=== PATIENT | male | born 1960 | race Caucasian/White ===

== ENCOUNTER 2019-06-05 17:37 | Emergency (ER) | payer SELFPAY ==
--- NOTE | 2019-06-05 17:42 | DI.RAD.S_ITS ---
PROCEDURE: XR CHEST 1V INDICATIONS: chest pain TECHNIQUE: One view of the chest was acquired. COMPARISON: [facility], , CHEST 1 VIEW, 08/15/2015, 15:14. FINDINGS: Surgical changes and devices: Remote CABG Lungs and pleura: Lungs are clear. No pleural effusions or pneumothorax. Mediastinum: Mediastinal contours appear normal. Heart size is normal. Bones and chest wall: No suspicious bony lesions. Overlying soft tissues appear unremarkable. IMPRESSION: No evidence acute pulmonary process. Dictated by: Kapil Malone M.D. on 06/05/2019 at 18:30 Approved by: Kapil Malone M.D. on 06/05/2019 at 18:31
[2019-06-05 17:50] VITALS: BP 126/84; PULSE 72; RESP 13; TEMP 36.4; O2SAT 100; BMI 28.5
[2019-06-05 18:00] VITALS: BP 129/77; PULSE 72; RESP 21; O2SAT 97
[2019-06-05 18:13] LABS: INR 0.9 (0.9-1.3); Prothrombin Time 10.5 SECONDS (10.1-12.7)
[2019-06-05 18:16] LABS: PTT Partial Thromboplastin Tim 31 SECONDS (26.4-36.2)
[2019-06-05 18:19] LABS: Alanine Aminotransferase 49 IU/L (<50); Albumin 4.6 g/dL (3.5-5.0); Albumin Globulin Ratio 1.8 (1.0-2.8); Alkaline Phosphatase 55 U/L (38-126); Aspartate Aminotransferase 41 IU/L (17-59); Bilirubin Total 0.9 mg/dL (0.2-1.3); Blood Urea Nitrogen 25 mg/dL (9-20); Calcium 9.1 mg/dL (8.4-10.2); Carbon Dioxide 28 mmol/L (22-32); Chloride 102 mmol/L (98-107); Creatine Kinase 234 U/L (55-170); Estimated Glomerular Filt Rate > 60.0 mL/min (>60); Globulin 2.6 g/dL (1.7-4.1); Glucose 88 mg/dL (70-100); HEMOLYSIS < 15 (0-50); Lipase 274 U/L (23-300); Potassium 4.1 mmol/L (3.4-5.1); Sodium 139 mmol/L (137-145); Total Protein 7.2 g/dL (6.3-8.2)
[2019-06-05 18:24] LABS: Add Manual Diff / Slide Review NO; Basophils Absolute Auto 100 /uL (0-100); Basophils Percent Auto 1.1 % (0-2); Eosinophils Absolute Auto 100 /uL (0-450); Eosinophils Percent Auto 1.5 % (2-4); Hemoglobin 15.5 g/dL (13.5-17.5); Lymphocytes Absolute Auto 1800 /uL (1100-4500); Lymphocytes Percent Auto 30.4 % (25-40); Mean Corpuscular Hemoglobin 34.1 PG (26-34); Mean Corpuscular Volume 94.9 fL (80-100); Monocytes Absolute Auto 400 /uL (0-900); Neutrophils Absolute Auto 3500 /uL (1500-7000); Platelet Count 170 X10^3/uL (150-400); Red Blood Cell Count 4.53 X10^6/uL (4.5-5.9); White Blood Cell Count 5.8 X10^3/uL (4.5-11.0)
[2019-06-05 18:30] LABS: Troponin I < 0.012 ng/mL (0.01-0.034)
--- NOTE | 2019-06-05 18:32 | ED.CHESTPAIN ---
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 His discomfort radiated up in to his shoulders. He denies any dizziness, weakness, shortness of breath, diaphoresis, nausea or vomiting. He denies any pain since his arrival. He's had no recent travel. He denies any cardiac evaluation since his CABG in 2016. He feels completely normal now. Related Data Allergies Allergy/AdvReac Type Severity Reaction Status Date / Time penicillin G [PENICILLIN G] Allergy Severe HIVES Unverified 11/04/17 12:35 Review of Systems Constitutional Constitutional: Denies chills, Denies fatigue, Denies fever(s), Denies frequent falls, Denies lethargy and Denies weakness Eyes Eyes: Denies change in vision, Denies eye discharge, Denies irritation and Denies loss of vision ENT Ears, Nose, Mouth, and Throat: Denies change in voice, Denies dizziness, Denies neck pain, Denies sore throat and Denies throat swelling Cardiovascular Cardiovascular: Reports chest pain, Denies irregular heart rhythm, Denies lightheadedness, Denies palpitations, Denies dyspnea, Denies dyspnea on exertion and Denies orthopnea Respiratory Respiratory: Denies cough, Denies dyspnea, Denies dyspnea on exertion and Denies wheezing Gastrointestinal Gastrointestinal: Denies abdominal pain, Denies change in bowel habits, Denies diarrhea, Denies nausea and Denies vomiting Genitourinary Genitourinary: Denies hematuria, Denies flank pain, Denies urinary incontinence and Denies urinary urgency Musculoskeletal Musculoskeletal: Denies back pain, Denies muscle weakness, Denies neck pain, Denies numbness and Denies tingling Integumentary/Breasts Skin/Breast: Denies pruritus, Denies erythema, Denies rash and Denies wounds Neurologic Neurologic: Denies behavioral changes, Denies confusion, Denies dizziness, Denies frequent falls, Denies loss of vision, Denies numbness, Denies tingling and Denies weakness Psychiatric Psychiatric: Denies anxiety, Denies behavioral changes, Denies confusion, Denies depression, Denies homicidal ideation and Denies suicidal ideation Endocrine Endocrine: Denies fatigue, Denies flushing and Denies palpitations Hematologic/Lymphatic Hematologic/Lymphatic: Denies easy bruising Allergic/Immunologic Allergic/Immunologic: Denies urticaria, Denies throat swelling and Denies wheezing Patient History Social History Smoking Status: Never smoker alcohol intake frequency: a few times a week Substance Use Type: does not use Exam Narrative Exam Narrative: GENERAL: [58] year old patient appears stated age. Well-nourished, well-developed patient, in mild distress. HEAD: Atraumatic. Normocephalic. EYES: Pupils equal round and reactive. Extraocular motions intact. No scleral icterus. No injection or drainage. ENT: Nose without bleeding, purulent drainage. Throat without erythema, tonsillar hypertrophy or exudate. Airway patent. NECK: Trachea midline. Non tender CARDIOVASCULAR: Regular rate and rhythm without murmurs, gallops, or rubs. RESPIRATORY: Clear to auscultation. Breath sounds equal bilaterally. No wheezes, rales, or rhonchi. GASTROINTESTINAL: Abdomen soft, non-tender, nondistended. EXTREMITIES: No edema or joint tenderness. BACK: Nontender without deformity or crepitance. No flank tenderness. NEURO: AOx3. SKIN: No rash or erythema of visible areas Initial Vital Signs Initial Vital Signs: Vital Signs Temperature 97.5 F L 06/05/19 17:50 Pulse Rate 72 06/05/19 17:50 Respiratory Rate 13 06/05/19 17:50 Blood Pressure 126/84 06/05/19 17:50 Pulse Oximetry 100 06/05/19 17:50 Course Orders Ordered: ED Orders 06/05/19 20:40 Troponin I Stat Consultations Consultation #1: Called to cardiology at [facility] to discuss the case. They share the opinion that patient is safe to discharge home after 2nd troponin given the patient's story and lack of ongoing symptoms. This is consistent with stable angina Vital Signs Vital signs: Vital Signs - 8 hr 06/05/19 21:37 Pulse Rate 74 Respiratory Rate 21 Blood Pressure 130/86 Pulse Oximetry 97 MDM - Chest Pain Lab Data Result diagrams: 06/05/19 18:00 06/05/19 18:00 Labs: Lab Results 06/05/19 06/05/19 06/05/19 Range/Units 18:00 18:00 18:00 WBC 5.8 (4.5-11.0) X10^3/uL RBC 4.53 (4.5-5.9) X10^6/uL Hgb 15.5 (13.5-17.5) g/dL Hct 43.0 (41-53) % MCV 94.9 (80-100) fL MCH 34.1 H (26-34) PG MCHC 36.0 (30-36) % RDW 13.0 (11.6-14.8) % Plt Count 170 (150-400) X10^3/uL Neut % (Auto) 60.0 (50-75) % Lymph % (Auto) 30.4 (25-40) % [place] % (Auto) 7.0 (3-14) % Eos % (Auto) 1.5 L (2-4) % Baso % (Auto) 1.1 (0-2) % Neut # (Auto) 3500 (0239-0846) /uL Lymph # (Auto) 1800 (7320-3076) /uL [place] # (Auto) 400 (0-900) /uL Eos # (Auto) 100 (0-450) /uL Baso # (Auto) 100 (0-100) /uL PT 10.5 (10.1-12.7) SECONDS INR 0.9 (0.9-1.3) APTT 31 (26.4-36.2) SECONDS Sodium 139 (137-145) mmol/L Potassium 4.1 (3.4-5.1) mmol/L Chloride 102 (98-107) mmol/L Carbon Dioxide 28 (22-32) mmol/L BUN 25 H (9-20) mg/dL Creatinine 1.00 (0.66-1.25) mg/dL Estimated GFR > 60.0 (>60) mL/min BUN/Creatinine Ratio 25.0 H (6-22) Glucose 88 (70-100) mg/dL Calcium 9.1 (8.4-10.2) mg/dL Total Bilirubin 0.9 (0.2-1.3) mg/dL AST 41 (17-59) IU/L ALT 49 (<50) IU/L Alkaline Phosphatase 55 (38-126) U/L Total Creatine Kinase 234 H (55-170) U/L CK-MB (CK-2) 3.63 H (<2.37) ng/mL CK-MB (CK-2) Rel Index 1.6 (1.5-5.0) % Troponin I < 0.012 (0.01-0.034) ng/mL Total Protein 7.2 (6.3-8.2) g/dL Albumin 4.6 (3.5-5.0) g/dL Globulin 2.6 (1.7-4.1) g/dL Albumin/Globulin Ratio 1.8 (1.0-2.8) Lipase 274 (23-300) U/L 06/05/19 Range/Units 20:40 WBC (4.5-11.0) X10^3/uL RBC (4.5-5.9) X10^6/uL Hgb (13.5-17.5) g/dL Hct (41-53) % MCV (80-100) fL MCH (26-34) PG MCHC (30-36) % RDW (11.6-14.8) % Plt Count (150-400) X10^3/uL Neut % (Auto) (50-75) % Lymph % (Auto) (25-40) % [place] % (Auto) (3-14) % Eos % (Auto) (2-4) % Baso % (Auto) (0-2) % Neut # (Auto) (4047-8998) /uL Lymph # (Auto) (7641-1310) /uL [place] # (Auto) (0-900) /uL Eos # (Auto) (0-450) /uL Baso # (Auto) (0-100) /uL PT (10.1-12.7) SECONDS INR (0.9-1.3) APTT (26.4-36.2) SECONDS Sodium (137-145) mmol/L Potassium (3.4-5.1) mmol/L Chloride (98-107) mmol/L Carbon Dioxide (22-32) mmol/L BUN (9-20) mg/dL Creatinine (0.66-1.25) mg/dL Estimated GFR (>60) mL/min BUN/Creatinine Ratio (6-22) Glucose (70-100) mg/dL Calcium (8.4-10.2) mg/dL Total Bilirubin (0.2-1.3) mg/dL AST (17-59) IU/L ALT (<50) IU/L Alkaline Phosphatase (38-126) U/L Total Creatine Kinase (55-170) U/L CK-MB (CK-2) (<2.37) ng/mL CK-MB (CK-2) Rel Index (1.5-5.0) % Troponin I < 0.012 (0.01-0.034) ng/mL Total Protein (6.3-8.2) g/dL Albumin (3.5-5.0) g/dL Globulin (1.7-4.1) g/dL Albumin/Globulin Ratio (1.0-2.8) Lipase (23-300) U/L Discharge Plan Departure Patient Disposition: Home Clinical Impression: Chest pain Qualifiers: Chest pain type: unspecified Qualified Code(s): R07.9 - Chest pain, unspecified Discharge Date/Time: 06/05/19 21:38 Instructions: DI for Angina Activity Restrictions/Additional Instructions: *You have been diagnosed with [chest pain ] *What to do: *Take medications as directed *Follow up with your primary care provider in 2-3 days, call for an appointment. Let them know you were seen in the Emergency Department and that we ask that you be seen in follow up *Return to ER if you should have any new, worsening or concerning symptoms Referrals: Cheo Coronado MD [Primary Care Provider] -
[2019-06-05 18:34] LABS: CKMB % Relative Index 1.6 % (1.5-5.0); Creatine Kinase MB 3.63 ng/mL (<2.37)
[2019-06-05 19:20] VITALS: BP 131/80; PULSE 71; RESP 16; O2SAT 98
[2019-06-05 21:00] VITALS: BP 133/90; PULSE 75; O2SAT 100
[2019-06-05 21:26] LABS: Troponin I < 0.012 ng/mL (0.01-0.034)
[2019-06-05 21:37] VITALS: BP 130/86; PULSE 74; RESP 21; O2SAT 97
== END 2019-06-05 21:38 | disposition home or self-care (01) ==
PROVIDERS: Emergency Medicine; Emergency Provider Emergency Medicine; Family Provider Internal Medicine; PCP Internal Medicine
DX: R07.9 Chest pain, unspecified (principal)
CPT/HCPCS: 36415; 71045; 80053; 82550; 82553; 83690; 84484; 85025; 85610; 85730; 93005; 99283; 99285

== ENCOUNTER 2020-04-01 11:39 | Emergency (ER) | payer OTHER, SELFPAY ==
[2020-04-01] VITALS (15 sets, daily range): BP systolic 105–160; BP diastolic 69–93; PULSE 59–75; RESP 9–31; TEMP 36.8; O2SAT 94–100; BMI 27.8
--- NOTE | 2020-04-01 11:53 | DI.RAD.S_ITS ---
PROCEDURE: XR CHEST 1V INDICATIONS: chest pain TECHNIQUE: One view of the chest was acquired. COMPARISON: [facility], , CHEST 1 VIEW, 08/15/2015, 15:14. [facility], , XR CHEST 1V, 06/05/2019, 17:57. FINDINGS: Surgical changes and devices: Post CABG changes are seen. A left-sided great vessel stent is seen. Lungs and pleura: An incomplete inspiratory result is noted, causing a crowded appearance to the lung markings. No focal infiltrates are seen. No pneumothorax or significant pleural effusions are seen. Mediastinum: Mediastinal contours appear normal. Heart size is normal. Bones and chest wall: Age-appropriate bony degenerative changes are seen. No suspicious bony lesions. Overlying soft tissues appear unremarkable. IMPRESSION: Limited portable chest examination, without a significant cardiopulmonary abnormality identified. Postoperative and degenerative changes are seen. Dictated by: Eddie Mendoza M.D. on 04/01/2020 at 11:13 Approved by: Eddie Mendoza M.D. on 04/01/2020 at 11:16
--- NOTE | 2020-04-01 12:01 | ED.CHESTPAIN ---
HPI - Chest Pain General Chief Complaint: Chest Pain Stated Complaint: chest pain/ jaw pain/ prev heart attack Time Seen by Provider: 04/01/20 11:47 Source: patient Mode of arrival: Ambulatory Limitations: no limitations History of Present Illness HPI narrative: Patient is a 59-year-old male with history of coronary artery disease and stents who presents with chest pain. 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 He denies any shortness of breath or diaphoresis or nausea. This does not feel as bad as previous heart attacks, but is uncomfortable. He took nitroglycerin prior to arrival without any relief. Pain has lasted for almost 1 hour. 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 MD complaint: chest pain Onset (ago): minute(s) Duration: improved Related Data Allergies Allergy/AdvReac Type Severity Reaction Status Date / Time penicillin G [PENICILLIN G] Allergy Severe HIVES Unverified 11/04/17 12:35 Review of Systems Review of Systems Narrative: GENERAL: Denies chills, fatigue, malaise, fever, sweats, travel HEENT: Denies sinus pain, ear pain, sore throat, difficulty swallowing, neck pain RESPIRATORY: Denies dyspnea, cough, wheezing, hemoptysis, sputum. CARDIOVASCULAR: See HPI GASTROINTESTINAL: Denies nausea, vomiting, abdominal pain, diarrhea, constipation, melena. : Denies dysuria, frequency, incontinence, hematuria, urinary retention, flank pain. MUSCULOSKELETAL: Denies weakness, joint pain, or bony pain SKIN: No rash, no erythema, no pruritus NEUROLOGIC: Denies weakness, dizziness, headache, numbness, change in speech, confusion PSYCHIATRIC: No concerning psychosocial issues. 12 point review of systems is negative except for those stated above and HPI Patient History Medical History (Updated 04/01/20 @ 17:32 by Marcie Medina DO) Coronary artery disease (Acute) Social History Smoking Status: Never smoker Smoking Status: Never smoker alcohol intake frequency: a few times a week Substance Use Type: does not use Exam Initial Vital Signs Initial Vital Signs: Vital Signs Temperature 98.2 F 04/01/20 11:46 Pulse Rate 69 04/01/20 11:46 Respiratory Rate 18 04/01/20 11:46 Blood Pressure 127/76 04/01/20 11:46 Pulse Oximetry 98 04/01/20 11:46 GENERAL: Well-appearing, well-nourished and in no acute distress. HEENT: Head atraumatic,EOMI, pupils reactive, face symmetric, moist mucous membranes CARDIOVASCULAR: Regular rate and rhythm without murmurs, rubs or gallops. RESPIRATORY: Breath sounds equal bilaterally, no wheezes rales or rhonchi. ABDOMEN: Soft, nontender. Normoactive bowel sounds all 4 quadrants. No guarding or rebound. EXTREMITIES: Normal range of motion, no clubbing or edema. Neurovascularly intact NEUROLOGICAL: Alert and oriented x4.Normal gait and speech. SKIN: Warm, dry, no laceration, no petechiae, no rashes or lesions. Course Orders Ordered: ED Orders 04/01/20 11:53 XR chest 1V Stat EKG-12 Lead Stat 04/01/20 11:57 Complete Blood Count AUTO DIFF Stat Comprehensive Metabolic Panel Stat Lipase Stat NT-proBNP (BNP-Adult 18+) Stat Partial Thromboplastin Time Stat Prothrombin Time INR Stat Troponin & CK Cardiac Panel Stat 04/01/20 15:07 Troponin I Stat 04/01/20 16:21 COVID19 -ED/INPAT/OR/L&D Stat Discontinued Medications Aspirin (Aspirin Chew) 324 mg PO NOW ONE Stop: 04/01/20 11:54 Last Admin: 04/01/20 12:05 Dose: 324 mg Documented by: ZOILA Sodium Chloride (Normal Saline 0.9%) 1,000 mls @ 150 mls/hr IV CONT OLIVIA Last Infusion: 04/01/20 16:42 Dose: 0 mls/hr Documented by: Admin: 04/01/20 12:05 Dose: 150 mls/hr Documented by: ZOILA Nitroglycerin (Nitrostat) 0.4 mg SL [id number] PRN PRN Reason: Chest Pain Last Admin: 04/01/20 12:05 Dose: 0.4 mg Documented by: ZOILA Vital Signs Vital signs: Vital Signs - 8 hr 04/01/20 11:46 04/01/20 12:05 04/01/20 12:20 Temperature 98.2 F Pulse Rate 69 70 69 Respiratory Rate 18 14 Blood Pressure 127/76 118/75 Pulse Oximetry 98 94 04/01/20 12:30 04/01/20 13:00 04/01/20 13:44 Temperature Pulse Rate 66 61 61 Respiratory Rate 13 16 15 Blood Pressure 105/71 126/89 Pulse Oximetry 94 94 99 04/01/20 13:46 04/01/20 14:00 04/01/20 14:30 Temperature Pulse Rate 62 59 L 63 Respiratory Rate 12 9 L 26 H Blood Pressure 126/89 119/77 Pulse Oximetry 98 97 99 04/01/20 14:31 04/01/20 15:00 04/01/20 15:30 Temperature Pulse Rate 65 64 70 Respiratory Rate 31 H 26 H 20 Blood Pressure 125/81 137/85 Pulse Oximetry 99 100 100 04/01/20 15:31 04/01/20 16:04 04/01/20 18:05 Temperature Pulse Rate 75 71 70 Respiratory Rate 21 20 Blood Pressure 160/93 H 137/78 Pulse Oximetry 100 98 99 MDM - Chest Pain Lab Data Attestation: I reviewed the patient's lab results. Result diagrams: 04/01/20 11:57 04/01/20 11:57 Labs: Lab Results 04/01/20 04/01/20 04/01/20 Range/Units 11:57 11:57 11:57 WBC 5.6 (4.5-11.0) X10^3/uL RBC 4.34 L (4.5-5.9) X10^6/uL Hgb 14.7 (13.5-17.5) g/dL Hct 41.3 (41-53) % MCV 95.0 (80-100) fL MCH 33.8 (26-34) PG MCHC 35.6 (30-36) % RDW 13.2 (11.6-14.8) % Plt Count 186 (150-400) X10^3/uL Neut % (Auto) 63.1 (50-75) % Lymph % (Auto) 26.5 (25-40) % [place] % (Auto) 7.5 (3-14) % Eos % (Auto) 1.8 L (2-4) % Baso % (Auto) 1.1 (0-2) % Neut # (Auto) 3500 (3483-9452) /uL Lymph # (Auto) 1500 (1252-2285) /uL [place] # (Auto) 400 (0-900) /uL Eos # (Auto) 100 (0-450) /uL Baso # (Auto) 100 (0-100) /uL PT 10.3 (10.1-12.7) SECONDS INR 0.9 (0.9-1.3) APTT 31 (26.4-36.2) SECONDS Sodium 137 (137-145) mmol/L Potassium 4.1 (3.4-5.1) mmol/L Chloride 103 (98-107) mmol/L Carbon Dioxide 27 (22-32) mmol/L BUN 24 H (9-20) mg/dL Creatinine 0.92 (0.66-1.25) mg/dL Estimated GFR > 60.0 (>60) mL/min BUN/Creatinine Ratio 26.1 H (6-22) Glucose 107 H (70-100) mg/dL Calcium 9.3 (8.4-10.2) mg/dL Total Bilirubin 0.8 (0.2-1.3) mg/dL AST 40 (17-59) IU/L ALT 51 H (<50) IU/L Alkaline Phosphatase 61 (38-126) U/L Total Creatine Kinase 243 H (55-170) U/L CK-MB (CK-2) 4.21 H (<2.37) ng/mL CK-MB (CK-2) Rel Index 1.7 (1.5-5.0) % Troponin I < 0.012 (0.01-0.034) ng/mL NT-Pro-B Natriuret Pep 160 H (<125) pg/mL Total Protein 7.2 (6.3-8.2) g/dL Albumin 4.4 (3.5-5.0) g/dL Globulin 2.8 (1.7-4.1) g/dL Albumin/Globulin Ratio 1.6 (1.0-2.8) Lipase 138 (23-300) U/L 04/01/20 Range/Units 15:07 WBC (4.5-11.0) X10^3/uL RBC (4.5-5.9) X10^6/uL Hgb (13.5-17.5) g/dL Hct (41-53) % MCV (80-100) fL MCH (26-34) PG MCHC (30-36) % RDW (11.6-14.8) % Plt Count (150-400) X10^3/uL Neut % (Auto) (50-75) % Lymph % (Auto) (25-40) % [place] % (Auto) (3-14) % Eos % (Auto) (2-4) % Baso % (Auto) (0-2) % Neut # (Auto) (3551-0310) /uL Lymph # (Auto) (1042-3759) /uL [place] # (Auto) (0-900) /uL Eos # (Auto) (0-450) /uL Baso # (Auto) (0-100) /uL PT (10.1-12.7) SECONDS INR (0.9-1.3) APTT (26.4-36.2) SECONDS Sodium (137-145) mmol/L Potassium (3.4-5.1) mmol/L Chloride (98-107) mmol/L Carbon Dioxide (22-32) mmol/L BUN (9-20) mg/dL Creatinine (0.66-1.25) mg/dL Estimated GFR (>60) mL/min BUN/Creatinine Ratio (6-22) Glucose (70-100) mg/dL Calcium (8.4-10.2) mg/dL Total Bilirubin (0.2-1.3) mg/dL AST (17-59) IU/L ALT (<50) IU/L Alkaline Phosphatase (38-126) U/L Total Creatine Kinase (55-170) U/L CK-MB (CK-2) (<2.37) ng/mL CK-MB (CK-2) Rel Index (1.5-5.0) % Troponin I < 0.012 (0.01-0.034) ng/mL NT-Pro-B Natriuret Pep (<125) pg/mL Total Protein (6.3-8.2) g/dL Albumin (3.5-5.0) g/dL Globulin (1.7-4.1) g/dL Albumin/Globulin Ratio (1.0-2.8) Lipase (23-300) U/L Imaging Data Chest x-ray: Radiologist's Impression: PROCEDURE: XR CHEST 1V INDICATIONS: chest pain TECHNIQUE: One view of the chest was acquired. COMPARISON: [facility], CR, CHEST 1 VIEW, 08/15/2015, 15:14. [facility], CR, XR CHEST 1V, 06/05/2019, 17:57. FINDINGS: Surgical changes and devices: Post CABG changes are seen. A left-sided great vessel stent is seen. Lungs and pleura: An incomplete inspiratory result is noted, causing a crowded appearance to the lung markings. No focal infiltrates are seen. No pneumothorax or significant pleural effusions are seen. Mediastinum: Mediastinal contours appear normal. Heart size is normal. Bones and chest wall: Age-appropriate bony degenerative changes are seen. No suspicious bony lesions. Overlying soft tissues appear unremarkable. IMPRESSION: Limited portable chest examination, without a significant cardiopulmonary abnormality identified. Postoperative and degenerative changes are seen. Dictated by: Eddie Mendoza M.D. on 04/01/2020 at 11:13 Approved by: Eddie Mendoza M.D. on 04/01/2020 at 11:16 ECG Data Attestation: I personally reviewed and interpreted this ECG as follows: Prior ECG tracings: available for review Interpretation: NORMAL SINUS RHYTHM RATE 69 P.R. INTERVAL 202 QRS 82 QTC FOR LAB DATA IN ELEVATION OR DEPRESSION NO T-WAVE INVERSION EKG 2. SINUS RHYTHM RATE 68 P.R. 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 Donahue, states that patient had a heart catheterization in September of 2019 he had an event during the heart catheterization clot from the wrist causing a lad blockage. Patient had a VFib arrest, however his coronary arteries were clean in did not have any blockage prior. At this time he agrees with outpatient follow-up and to call the office on Thursday which is in 2 days. Patient is chest pain-free in the emergency department. His symptoms are concerning of chest pain radiating to his neck which may be angina. However I feel the patient is high risk patient is very hesitant to be transferred to [place] in would much rather follow-up as an outpatient. I have discussed my concerns with both he and his . The patient is clinically sober, free from distracting injury, appears to have intact insight, judgment and reason. Does not meet criteria for involuntary hospitalization. Patient has the capacity to make decisions. I discussed all findings with the patient and , Education has been performed regarding treatment plan, diagnosis, warning signs and symptoms and all concerns have been addressed. Verbally agree with and understood all of the above. Discharge Plan Departure Patient Disposition: Home Clinical Impression: Stable angina Discharge Date/Time: 04/01/20 18:07 Instructions: DI for Angina Activity Restrictions/Additional Instructions: *You have been diagnosed with angina *What to do: You need to follow-up with cardiology as soon as possible for further evaluation and possible testing. If your chest pain should return or change in any nature you are to return to the nearest emergency department and even call 911. *Continue to take medications as directed *Follow up with your primary care provider in 2-3 days *Return to ER if you should have chest discomfort, jaw discomfort arm discomfort, shortness of breath, nausea or any new, worsening or concerning symptoms Referrals: Cheo Coronado MD [Primary Care Provider] - Wilfredo Stinson MD [Non-Staff] -
[2020-04-01 12:05] LABS: Add Manual Diff / Slide Review NO; Basophils Absolute Auto 100 /uL (0-100); Basophils Percent Auto 1.1 % (0-2); Eosinophils Absolute Auto 100 /uL (0-450); Eosinophils Percent Auto 1.8 % (2-4); Hematocrit 41.3 % (41-53); Hemoglobin 14.7 g/dL (13.5-17.5); Lymphocytes Absolute Auto 1500 /uL (1100-4500); Lymphocytes Percent Auto 26.5 % (25-40); Mean Corpuscular HGB Conc 35.6 % (30-36); Mean Corpuscular Hemoglobin 33.8 PG (26-34); Monocytes Absolute Auto 400 /uL (0-900); Monocytes Percent Auto 7.5 % (3-14); Neutrophils Absolute Auto 3500 /uL (1500-7000); Neutrophils Percent Auto 63.1 % (50-75); Platelet Count 186 X10^3/uL (150-400); Red Blood Cell Count 4.34 X10^6/uL (4.5-5.9); Red Cell Distribution Width 13.2 % (11.6-14.8); White Blood Cell Count 5.6 X10^3/uL (4.5-11.0)
[2020-04-01] MEDS: NITROGLYCERIN 0.4 MG SL TAB SL (12:05)
[2020-04-01] MEDS: ASPIRIN 81 MG CHEW TAB 324 MG PO (12:05)
[2020-04-01] MEDS: SODIUM CHLORIDE 0.9% 1,000 ML 150 ML IV (12:05)
[2020-04-01 12:12] LABS: INR 0.9 (0.9-1.3); Prothrombin Time 10.3 SECONDS (10.1-12.7)
[2020-04-01 12:14] LABS: PTT Partial Thromboplastin Tim 31 SECONDS (26.4-36.2)
[2020-04-01 12:16] LABS: Alanine Aminotransferase 51 IU/L (<50); Albumin 4.4 g/dL (3.5-5.0); Albumin Globulin Ratio 1.6 (1.0-2.8); Alkaline Phosphatase 61 U/L (38-126); Aspartate Aminotransferase 40 IU/L (17-59); BUN Creatinine Ratio 26.1 (6-22); Bilirubin Total 0.8 mg/dL (0.2-1.3); Blood Urea Nitrogen 24 mg/dL (9-20); Calcium 9.3 mg/dL (8.4-10.2); Carbon Dioxide 27 mmol/L (22-32); Chloride 103 mmol/L (98-107); Creatine Kinase 243 U/L (55-170); Estimated Glomerular Filt Rate > 60.0 mL/min (>60); Globulin 2.8 g/dL (1.7-4.1); Glucose 107 mg/dL (70-100); HEMOLYSIS 16 (0-50); Lipase 138 U/L (23-300); Potassium 4.1 mmol/L (3.4-5.1); Sodium 137 mmol/L (137-145); Total Protein 7.2 g/dL (6.3-8.2)
[2020-04-01 12:28] LABS: NT-proBNP (BNP-Adult 18+) 160 pg/mL (<125); Troponin I < 0.012 ng/mL (0.01-0.034)
[2020-04-01 12:31] LABS: CKMB % Relative Index 1.7 % (1.5-5.0); Creatine Kinase MB 4.21 ng/mL (<2.37)
[2020-04-01 15:40] LABS: Troponin I < 0.012 ng/mL (0.01-0.034)
== END 2020-04-01 18:07 | disposition home or self-care (01) ==
PROVIDERS: Emergency Provider Emergency Medicine; Family Provider Internal Medicine; PCP Internal Medicine
DX: I25.119 Atherosclerotic heart disease of native coronary artery with unspecified angina pectoris (principal)
CPT/HCPCS: 36415; 71045; 80053; 82550; 82553; 83690; 83880; 84484; 85025; 85610; 85730; 93005; 96360; 96361; 99284

== ENCOUNTER 2022-10-02 09:44 | Emergency (ER) | payer OTHER, SELFPAY ==
[2022-10-02 09:48] VITALS: BP 132/78; PULSE 65; RESP 18; TEMP 36.7; O2SAT 100; BMI 26.8
[2022-10-02] MEDS: OXYMETAZOLINE NASAL SPRAY 15 ML 2 SPRAYS NASAL (10:30)
[2022-10-02 11:10] VITALS: BP 118/77; PULSE 63; RESP 18; O2SAT 97
--- NOTE | 2022-10-02 11:53 | PC.NURSE ---
pt states his nose bleed just stopped. only a trickle on right side for a few seconds.
--- NOTE | 2022-10-02 12:01 | ED.EPISTAXIS ---
HPI - Epistaxis <Vinicio Garcia PA-C - Last Filed: 10/02/22 18:38> General Chief complaint: Nasal Problem Stated complaint: nose bleed on thinners Time Seen by Provider: 10/02/22 11:48 Source: patient Mode of arrival: Ambulatory History of Present Illness HPI Narrative: This is a 61-year-old male presents emergency department due to an episode of reported epistaxis. Patient states that he was blowing his nose when he began noticing blood coming from the left naris, which he attempted to plug up with the tissue and then blood became coming from his right naris. Patient states that he routinely takes a blood thinner due to history of unstable angina. Patient denies any lightheadedness, nasal pain, trauma to the area, or any other concerning signs or symptoms. Related Data Allergies Allergy/AdvReac Type Severity Reaction Status Date / Time penicillin G [PENICILLIN G] Allergy Severe HIVES Unverified 11/04/17 12:35 Review of Systems <Vinicio Garcia PA-C - Last Filed: 10/02/22 18:38> Review of Systems Narrative: GENERAL: Denies chills, fatigue, malaise, fever, sweats. HEENT: Bilateral epistaxis RESPIRATORY: Denies dyspnea, cough, wheezing, hemoptysis, sputum. CARDIOVASCULAR: Denies chest pain, palpitations, orthopnea, edema, GASTROINTESTINAL: Denies nausea, vomiting, abdominal pain, diarrhea, constipation, melena. : Denies dysuria, frequency, incontinence, hematuria, urinary retention. MUSCULOSKELETAL: denies weakness, joint pain, or bony pain SKIN: Denies rash, skin lesions, or other NEUROLOGIC: Denies weakness, headache, numbness, change in speech, confusion, seizures, incoordination. PSYCHIATRIC: No concerning psychosocial issues. 12 point review of systems is negative except for those stated above Patient History <Vinicio Garcia PA-C - Last Filed: 10/02/22 18:38> Medical History (Updated 10/02/22 @ 12:10 by Vinicio Garcia PA-C) Coronary artery disease Social History Smoking Status: Never smoker Smoking Status: Never smoker alcohol intake frequency: a few times a week Substance Use Type: does not use Exam <Vinicio Garcia PA-C - Last Filed: 10/02/22 18:38> Narrative Exam Narrative: GENERAL: Well-developed patient, in mild distress. HEAD: Atraumatic. Normocephalic. EYES: Pupils equal round and reactive. Extraocular motions intact. No scleral icterus. No injection or drainage. ENT: Some dry blood to the bilateral nares. No evidence of nasal hematoma. Throat without erythema, tonsillar hypertrophy or exudate. Airway patent. NECK: Trachea midline. Non tender EXTREMITIES: No edema or joint tenderness. BACK: Nontender without deformity or crepitance. No flank tenderness. NEURO: AOx3. SKIN: No rash or erythema of visible areas Initial Vital Signs Initial Vital Signs: Vital Signs Temperature 98.1 F 10/02/22 09:48 Pulse Rate 65 10/02/22 09:48 Respiratory Rate 18 10/02/22 09:48 Blood Pressure 132/78 10/02/22 09:48 Pulse Oximetry 100 10/02/22 09:48 Oxygen Delivery Method Room Air 10/02/22 09:48 <DO Adam Thompson Last Filed: 10/03/22 14:18> Initial Vital Signs Initial Vital Signs: Vital Signs Temperature 98.1 F 10/02/22 09:48 Pulse Rate 65 10/02/22 09:48 Respiratory Rate 18 10/02/22 09:48 Blood Pressure 132/78 10/02/22 09:48 Pulse Oximetry 100 10/02/22 09:48 Oxygen Delivery Method Room Air 10/02/22 09:48 Course <Vinicio Garcia PA-C - Last Filed: 10/02/22 18:38> Orders Ordered: Discontinued Medications Oxymetazoline HCl (Oxymetazoline Nasal Westhoff 15 Ml) 2 sprays NASAL NOW ONE Stop: 10/02/22 10:00 Last Admin: 10/02/22 10:30 Dose: 2 sprays Documented By: RENEE Tranexamic Acid (Tranexamic Acid 1,000 Mg Vial) 1,000 mg TOP NOW ONE Stop: 10/02/22 11:53 Last Admin: 10/02/22 12:09 Dose: Not Given Documented By: TATUM Vital Signs Vital signs: Vital Signs - 8 hr 10/02/22 11:10 Pulse Rate 63 Respiratory Rate 18 Blood Pressure 118/77 Pulse Oximetry 97 Oxygen Delivery Method Room Air <DO Adam Thompson Last Filed: 10/03/22 14:18> Orders Ordered: Discontinued Medications Oxymetazoline HCl (Oxymetazoline Nasal Westhoff 15 Ml) 2 sprays NASAL NOW ONE Stop: 10/02/22 10:00 Last Admin: 10/02/22 10:30 Dose: 2 sprays Documented By: RENEE Tranexamic Acid (Tranexamic Acid 1,000 Mg Vial) 1,000 mg TOP NOW ONE Stop: 10/02/22 11:53 Last Admin: 10/02/22 12:09 Dose: Not Given Documented By: TATUM Vital Signs Vital signs: Vital Signs - 8 hr 10/02/22 11:10 Pulse Rate 63 Respiratory Rate 18 Blood Pressure 118/77 Pulse Oximetry 97 Oxygen Delivery Method Room Air MDM - Epistaxis <Vinicio Garcia PA-C - Last Filed: 10/02/22 18:38> MDM Narrative Medical decision making narrative: MDM * differential diagnosis includes but not limited to nasal bone injury, epistaxis, nasal hematoma * Prior records reviewed: Patient has not been here for similar complaints in the past * My lab interpretation: None obtained * My imgaing interpretation: None obtained * Clinical Decision Rules/Scores evaluated: None * Independent discussions with: None ED Course: This is a 61-year-old male presents to the emergency department due to an episode of epistaxis that would not stop suspected likely to his blood thinner use. When patient arrived to triage he was given Afrin to bilateral nares as well as a nasal clamp applied. On my arrival manage interview the patient had no blood coming from his nose and had removed the clamp. On examination there is no evidence of a nasal hematoma and primarily dry blood in the nares. Discussed possible rhino rocket but due to the bleeding stopping shared decision making was utilized and no rhino rocket placed. Recommended patient continue blood thinner use but I advised him to avoid any aggressive blowing of the nose, snoring, or anything else that because a possible rebleed. Shared Decision Making: As above Social Considerations: None Disposition: Discharged to home Discharge Plan Departure Patient Disposition: Home Clinical Impression: Epistaxis Instructions: DI for Nosebleed Activity Restrictions/Additional Instructions: Thank you for coming to the [facility] Emergency Department today. I am glad that you and our triage nurses were able to stop the bleed. Please use the nasal clamp and Afrin as directed on the packaging in the case that this happens again. You are unable to stop the bleed you are also welcome to return here to the emergency department. I am God is stopped today. I hope you feel better soon. Referrals: Cheo Coronado MD [Primary Care Provider] - Stand Alone Forms: Patient Portal/API <Deysi Baker DO - Last Filed: 10/03/22 14:18> Cosign ED Attending Mackature Attestation: I was immediately available in the department for consultation. Documentation has been reviewed.
== END 2022-10-02 12:18 | disposition home or self-care (01) ==
PROVIDERS: Emergency Provider Physician Assistant Medical; Family Provider Internal Medicine; PCP Internal Medicine
DX: R04.0 Epistaxis (principal)
CPT/HCPCS: 99282; A9270

== ENCOUNTER → 2024-04-26 18:13 | Outpatient (CLI) | payer OTHER, SELFPAY | PROVIDERS: Family Provider Internal Medicine; PCP Internal Medicine; Visit Provider Physician Assistant Surgical | DX: L98.9 Disorder of the skin and subcutaneous tissue, unspecified (principal) | CPT/HCPCS: 87070; 87075; 87205 ==

== ENCOUNTER → 2024-04-30 08:49 | Outpatient (CLI) | payer OTHER, SELFPAY ==
[2024-04-30 09:52] LABS: Cholesterol 125 mg/dL (140-199); HDL Cholesterol 54 mg/dL (40-60); LDL Cholesterol Calculated 50 mg/dL (<100); Triglycerides 103 mg/dL (35-150)
== END ==
PROVIDERS: Family Provider Internal Medicine; PCP Internal Medicine; Referring Provider Internal Medicine; Visit Provider Internal Medicine
DX: I25.10 Atherosclerotic heart disease of native coronary artery without angina pectoris (principal)
CPT/HCPCS: 36415; 80061

== ENCOUNTER → 2024-06-06 10:01 | Outpatient (CLI) | payer OTHER, SELFPAY ==
[2024-06-06 10:57] LABS: Add Manual Diff / Slide Review NO; Basophils Absolute Auto 0 /uL (0-100); Basophils Percent Auto 0.9 % (0-2); Eosinophils Absolute Auto 0 /uL (0-450); Hematocrit 44.8 % (41-53); Lymphocytes Absolute Auto 1400 /uL (1100-4500); Lymphocytes Percent Auto 29.8 % (25-40); Mean Corpuscular HGB Conc 35.6 % (30-36); Mean Corpuscular Hemoglobin 35.1 PG (26-34); Mean Corpuscular Volume 98.5 fL (80-100); Monocytes Absolute Auto 400 /uL (0-900); Monocytes Percent Auto 7.5 % (3-14); Neutrophils Absolute Auto 2900 /uL (1500-7000); Neutrophils Percent Auto 60.8 % (50-75); Platelet Count 192 X10^3/uL (150-400); Red Blood Cell Count 4.54 X10^6/uL (4.5-5.9); Red Cell Distribution Width 13.3 % (11.6-14.8); White Blood Cell Count 4.7 X10^3/uL (4.5-11.0)
[2024-06-06 11:04] LABS: Hemoglobin A1C% w Est Avg Glu 5.1 % (4.0-6.0)
[2024-06-06 11:15] LABS: Alanine Aminotransferase 68 IU/L (<50); Albumin 4.6 g/dL (3.5-5.0); Albumin Globulin Ratio 1.8 (1.0-2.8); Alkaline Phosphatase 69 U/L (38-126); Aspartate Aminotransferase 46 IU/L (17-59); Bilirubin Total 0.7 mg/dL (0.2-1.3); Blood Urea Nitrogen 16 mg/dL (9-20); Calcium 9.1 mg/dL (8.4-10.2); Carbon Dioxide 23 mmol/L (22-32); Chloride 105 mmol/L (98-107); Cholesterol 110 mg/dL (140-199); Estimated Glomerular Filt Rate > 60 mL/min (>60); Globulin 2.5 g/dL (1.7-4.1); Glucose 98 mg/dL (80-110); HDL Cholesterol 49 mg/dL (40-60); HEMOLYSIS < 15 (0-50); LDL Cholesterol Calculated 39 mg/dL (<100); Potassium 4.7 mmol/L (3.4-5.1); Sodium 138 mmol/L (137-145); Total Protein 7.1 g/dL (6.3-8.2); Triglycerides 111 mg/dL (35-150)
[2024-06-06 11:43] LABS: TSH w/ Reflex to FT4 1.01 uIU/mL (0.47-4.68)
[2024-06-06 11:44] LABS: Prostate Specific Antigen 2.21 ng/mL (0.10-4.00)
== END ==
PROVIDERS: Family Provider Internal Medicine; PCP Family Medicine; Referring Provider Family Medicine; Visit Provider Family Medicine
DX: Z00.00 Encounter for general adult medical examination without abnormal findings (principal); Z80.42 Family history of malignant neoplasm of prostate; R73.03 Prediabetes; I25.810 Atherosclerosis of coronary artery bypass graft(s) without angina pectoris; I10 Essential (primary) hypertension; E78.00 Pure hypercholesterolemia, unspecified; N40.1 Benign prostatic hyperplasia with lower urinary tract symptoms; R35.1 Nocturia; F34.1 Dysthymic disorder
CPT/HCPCS: 36415; 80053; 80061; 83036; 84153; 84443; 85025

== ENCOUNTER → 2024-07-24 13:13 | Outpatient (CLI) | payer OTHER, SELFPAY ==
--- NOTE | 2024-07-24 13:15 | DI.RAD.S_ITS ---
PROCEDURE: XR CHEST 2V INDICATIONS: Cough or shortness of breath TECHNIQUE: 2 views of the chest were acquired. COMPARISON: [facility], CR, XR CHEST 1V, 04/01/2020, 12:02. [facility], CR, XR CHEST 1V, 06/05/2019, 17:57. FINDINGS: Surgical changes and devices: Sternotomy wires. Left upper mediastinal vascular stent. Lungs and pleura: No dense airspace disease or pleural effusions. Low lung volumes. Mediastinum: Normal heart size is unchanged. Bones and chest wall: Degenerative changes. IMPRESSION: Low lung volumes. No acute radiographic abnormality. Dictated by: Popeye Mckay M.D. on 07/24/2024 at 12:25 Approved by: Popeye Mckay M.D. on 07/24/2024 at 12:26
== END ==
PROVIDERS: Family Provider Internal Medicine; PCP Family Medicine; Referring Provider Physician Assistant Medical; Visit Provider Physician Assistant Medical
DX: R06.02 Shortness of breath (principal)
CPT/HCPCS: 71046

== ENCOUNTER → 2024-07-24 13:23 | Outpatient (CLI) | payer OTHER, SELFPAY ==
[2024-07-24 14:10] LABS: Influenza A - CEPHEID Flu A NEGATIVE (NEGATIVE); Influenza B - CEPHEID Flu B NEGATIVE (NEGATIVE); Respiratory Syncytial Virus Negative (Negative)
[2024-07-24 14:11] LABS: COVID-19 CEPHEID 4-PLEX PCR Negative (Negative)
== END ==
PROVIDERS: Family Provider Internal Medicine; PCP Family Medicine; Visit Provider Physician Assistant Medical
DX: R05.1 Acute cough (principal); R06.02 Shortness of breath
CPT/HCPCS: 0241U; 71046

== ENCOUNTER 2024-08-30 12:21 | Day surgery (SDC) | payer OTHER, SELFPAY ==
[2024-08-11 13:25] VITALS: BMI 27.6
[2024-08-11 13:34] VITALS: BMI 27.6
--- NOTE | 2024-08-30 | PATH_ITS ---
[facility] Accession Number: [id number] No. of containers..01 Tissue . 01 Material submitted: . rectum - RECTAL POLYP . 01 Diagnosis: RECTAL POLYP: Hyperplastic polyp. [facility] 09/01/2024 1623 Local . 01 Electronically signed: . Everett Padilla MD, Pathologist NPI- [id number] . 01 Gross description: . Received in formalin with two patient identifiers and 1. Rectal polyp, is a single gilbert soft tissue fragment 0.4 cm in greatest dimension. Submitted in cassette A1. ([id number]) /DENZEL 09/01/20243 Local . 01 Pathologist provided ICD-10: K62.1 . 01 CPT . 996061 Specimen Comment: A courtesy copy of this report has been sent to [facility] Pathology Performed at: [address] [id number] MD Everett Padilla MD Phone: [phone]
[2024-08-30 13:40] VITALS: BP 122/79; PULSE 56; RESP 18; TEMP 36.1; O2SAT 98
--- NOTE | 2024-08-30 14:22 | PM.HP.IH.1 ---
History of Present Illness History of Present Illness Date Patient Seen: 08/30/24 Time Patient Seen: 14:22 [place] [facility] [place]ative: 63-year-old white male presents for colon screening. He admits to hemorrhoids, some dermatitis on its buttock, potential nonhealing fissure with intermittent blood in the stool. [facility] Medical History (Updated 08/30/24 @ 14:23 by Williams Lisa MD) Colon cancer screening GEOVANNY (obstructive sleep apnea) Sarcoidosis Heart murmur H/O coronary angiogram (11/11/22) H/O coronary angiogram (2019) Myocardial infarct Rash Preventative health care Depression Family history of prostate cancer BPH (benign prostatic hyperplasia) Hyperlipidemia Hypertension Coronary artery disease Surgical History Hx of heart artery stent S/P CABG x 2 (2015) Social History household members: spouse Smoking Status: Never smoker alcohol intake: current Meds Home Medications and Allergies Home Medications Medication Instructions Recorded Confirmed Type atorvastatin 80 mg tablet 80 mg PO DAILY 04/26/24 08/30/24 History famotidine 10 mg tablet 10 mg PO BEDTIME 04/26/24 08/30/24 History metoprolol succinate 25 mg 25 mg PO BID 04/26/24 08/30/24 History tablet,extended release 24 hr nitroglycerin 0.4 mg sublingual mg sublingual 04/26/24 08/08/24 History tablet prasugrel 10 mg tablet 10 mg PO DAILY 04/26/24 08/30/24 History aspirin 81 mg tablet,delayed 81 mg PO DAILY 05/10/24 08/30/24 History release hydrocortisone 2.5 % topical topical 06/06/24 08/08/24 History ointment tamsulosin 0.4 mg capsule 0.4 mg PO BEDTIME #90 caps 06/06/24 08/30/24 Rx peg 3350-electrolytes 236 240 ml PO Q10M #4,000 mL 07/25/24 08/08/24 Rx gram-22.74 gram-6.74 gram-5.86 gram solution (Golytely) cephalexin 500 mg tablet 500 mg PO TID #21 tabs 08/08/24 08/08/24 Rx clobetasol 0.05 % topical ointment 1 applic topical BID #15 grams 08/08/24 08/08/24 Rx escitalopram oxalate 10 mg tablet 15 mg (1.5 x 10 mg) PO DAILY #135 08/12/24 08/30/24 Rx tabs Allergies Allergy/AdvReac Type Severity Reaction Status Date / Time penicillin G [PENICILLIN G] Allergy Severe HIVES Verified 08/30/24 13:36 Review of Systems Review of Systems ROS: Yes All systems reviewed with the patient and are negative except as otherwise documented Exam Vital Signs (past 8 hours): - 08/30/24 13:40 Temperature 97.0 F L Pulse Rate 56 L Respiratory Rate 18 Blood Pressure 122/79 Pulse Oximetry 98 Oxygen Delivery Method Room Air Oxygen Delivery Method Room Air Narrative Exam Narrative: Gen: NAD, sitting comfortably in bed, appears well HEENT: Sclera are anicteric, head is normocephalic and atraumatic, trachea is midline. CV: RRR, no JVD Resp: clear to auscultation bilaterally, equal chest wall movement bilaterally Abd: soft, nontender, normoactive bowel sounds Ext: no edema, full range of motion Neuro: Cranial nerves II-XII grossly intact, no focal deficits Skin: No erythema or ecchymosis Assessment & Plan Assessment and plan (1) Colon cancer screening: Status: Acute (2) Coronary artery disease: Qualifiers: Coronary Disease-Associated Artery/Lesion type: bypass graft [place] vs. 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 Cardiology clearance is on the chart. Patient presents for colonoscopy Risks, benefits, alternatives to colonoscopy explained, including but not limited to bowel perforation or other serious complication requiring surgery at less than 1 in 5000 colonoscopies, abdominal pain, cramping or bleeding and less than 1% of colonoscopies, and the chances that we find a diagnosis that would require further intervention of about 2%. Patient agrees to proceed. Time-Based Coding :: [TOTAL MINUTES] spent with patient and on the chart (including review of chart, obtaining history, exam, reviewing outside data, placing orders, documenting exam and treatment plan, and counseling patient) on [DATE]. [employer] Manager Document charge(s): No
--- NOTE | 2024-08-30 14:48 | PM.OP.COLON ---
Operative Date/Time/Diagnoses Date of procedure: 08/30/24 Time of procedure: 14:48 Pre-op diagnosis: Colon screening Post-op diagnosis: same (Rectal polyp) Procedure & Clinicians Study performed: Colonoscopy with cold snare polypectomy rectal polyp Same procedure as scheduled: Yes Indications: Colon screening Surgeon: Williams Lisa Procedure Notes SCOAP/Timeout: Performed Procedure in detail: Time-out was performed. Mac was induced. Patient was placed in left lateral decubitus position. The perineum was inspected without any gross abnormality. Lubricated pediatric colonoscope was inserted and advanced to the cecum. The terminal ileum was intubated. The colonoscope was withdrawn slowly inspecting the circumference of the colon. Very small polyps may have been missed, prep quality was adequate. A subcentimeter adenomatous appearing rectal polyp was noted, removed with cold snare polypectomy completely, and retrieved. Retroflexed view of the rectum showed small, non prolapsed nonbleeding internal hemorrhoids. The scope was withdrawn the patient was taken to PACU in good condition. Scope withdrawal time: 7 Sedation minutes: 19 Findings: polyp(s) Specimen(s): other (Rectal polyp) Complications: none Post-procedure Recommendations: Colonoscopy in 5 years Follow up: as needed Disposition: PACU
[2024-08-30 14:52] VITALS: BP 89/54; PULSE 56; RESP 17; TEMP 37; O2SAT 95
[2024-08-30 14:58] VITALS: BP 91/54; PULSE 57; RESP 17; TEMP 36.9; O2SAT 95
[2024-08-30 15:04] VITALS: BP 92/56; PULSE 55; RESP 15; TEMP 37; O2SAT 95
[2024-08-30 15:11] VITALS: BP 114/66; PULSE 64; RESP 18; TEMP 36.9; O2SAT 98
== END 2024-08-30 15:22 | disposition home or self-care (01) ==
PROVIDERS: Surgery; Family Provider Internal Medicine; PCP Family Medicine; Referring Provider Surgery; Visit Provider Surgery
PROC: 0DJD8ZZ Inspection of Lower Intestinal Tract, Via Natural or Artificial Opening Endoscopic (ICD-10-PCS; CPT 45378; principal; 2024-08-30 13:45)
DX: Z12.11 Encounter for screening for malignant neoplasm of colon (principal); Z95.1 Presence of aortocoronary bypass graft; I25.810 Atherosclerosis of coronary artery bypass graft(s) without angina pectoris; Z80.42 Family history of malignant neoplasm of prostate; K64.8 Other hemorrhoids; K62.1 Rectal polyp
CPT/HCPCS: 45385; J2704

== ENCOUNTER → 2024-09-26 18:23 | Outpatient (CLI) | payer OTHER, SELFPAY ==
--- NOTE | 2024-09-26 18:25 | DI.RAD.S_ITS ---
PROCEDURE: XR RIBS RT MIN 3V W CXR 1V INDICATIONS: Rib pain TECHNIQUE: 2 views of the ribs were acquired, along with a single view chest. COMPARISON: None. FINDINGS: Surgical changes and devices: Midline sternal wires Bones and chest wall: No fractures or dislocations. No suspicious bony lesions. Overlying soft tissues appear unremarkable. Lungs and pleura: No pleural effusions or pneumothorax. Lungs appear clear. Mediastinum: Mediastinal contours appear normal. Heart size is normal. IMPRESSION: No displaced rib fracture or pneumothorax. Approved by: Matthew Reddy M.D. on 09/27/2024 at 17:58
== END ==
LOC: RAD 18:24
PROVIDERS: Family Provider Internal Medicine; PCP Family Medicine; Referring Provider Nurse Practitioner Family; Visit Provider Nurse Practitioner Family
DX: R07.81 Pleurodynia (principal)
CPT/HCPCS: 71101

== ENCOUNTER → 2025-05-29 16:08 | Outpatient (CLI) | payer OTHER, SELFPAY ==
[2025-05-29 17:28] LABS: Hemoglobin A1C% w Est Avg Glu 5.1 % (4.0-6.0)
[2025-05-29 17:29] LABS: Alanine Aminotransferase 32 IU/L (<50); Albumin 4.5 g/dL (3.5-5.0); Albumin Globulin Ratio 1.7 (1.0-2.8); Alkaline Phosphatase 75 U/L (38-126); Blood Urea Nitrogen 19 mg/dL (9-20); Calcium 9.3 mg/dL (8.4-10.2); Carbon Dioxide 26 mmol/L (22-32); Chloride 100 mmol/L (98-107); Cholesterol 153 mg/dL (140-199); Estimated Glomerular Filt Rate > 60 mL/min (>60); Globulin 2.7 g/dL (1.7-4.1); Glucose 108 mg/dL (70-99); HDL Cholesterol 50 mg/dL (40-60); HEMOLYSIS 21 (0-50); Potassium 4.3 mmol/L (3.4-5.1); Sodium 136 mmol/L (137-145); Total Protein 7.2 g/dL (6.3-8.2); Triglycerides 177 mg/dL (35-150)
[2025-05-29 18:00] LABS: Prostate Specific Antigen 2.14 ng/mL (0.10-4.00)
== END ==
PROVIDERS: PCP Family Medicine; Referring Provider Family Medicine; Visit Provider Family Medicine
DX: Z12.5 Encounter for screening for malignant neoplasm of prostate (principal); N40.1 Benign prostatic hyperplasia with lower urinary tract symptoms; R35.1 Nocturia; E78.00 Pure hypercholesterolemia, unspecified; I10 Essential (primary) hypertension; F34.1 Dysthymic disorder
CPT/HCPCS: 36415; 80053; 80061; 83036; 84153; G0103